=== PATIENT | male | born 1985 | race Asian ===

== ENCOUNTER 2021-03-15 15:06 | Emergency (ER) | payer OTHER ==
[~2021-03-15] VITALS: Ht 157.5 cm; Wt 54.0 kg
--- NOTE | 2021-03-15 15:20 | NUR ---
PT SELF PRESENTS TO ED. AMBULATORY W. STEADY GAIT C/O PRESSURE LIKE CHEST PAIN INTERMITTENT X 4 DAYS. PT STATES LAST NIGHT PAIN WAS WORST. DENIES SOB. 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 AWAITING MD WHEELER.
--- NOTE | 2021-03-15 15:22 | NUR ---
DR PANTOJA AT BEDSIDE FOR EVAL.
[2021-03-15] MEDS ORDERED: IV NS 0.9% 1,000 ML BAG IV ONE (15:30)
--- NOTE | 2021-03-15 15:35 | NUR ---
IV LINE STARTED BLOOD DRAWN AND SENT TO LAB
--- NOTE | 2021-03-15 15:45 | NUR ---
RADIOLOGY AT BEDSIDE FOR CHEST XRAY.
[2021-03-15 15:54] LABS: BASOPHILS % (AUTO) 0.3 % (0.0-2.0); EOSINOPHILS % (AUTO) 0.2 % (0.0-6.0); HEMATOCRIT 48 % (39-51); HEMOGLOBIN 16.4 g/dL (13.5-17.5); LYMPHOCYTES # (AUTO) 1.7 K/uL (0.8-4.8); LYMPHOCYTES % (AUTO) 18.4 % (20.0-44.0); MEAN CORPUSCULAR HGB CONC 34 g/dl (31.0-36.0); MEAN CORPUSCULAR VOLUME 87 fL (80-96); MONOCYTES # (AUTO) 0.6 K/uL (0.1-1.30); MONOCYTES % (AUTO) 6.3 % (2.0-12.0); NEUTROPHILS # (AUTO) 6.8 K/uL (1.8-8.9); NEUTROPHILS % (AUTO) 74.8 % (43.0-81.0); PLATELET COUNT (AUTO) 309 K/uL (150-450); RED BLOOD CELL COUNT(AUTO) 5.49 MIL/uL (4.5-6.0); WHITE BLOOD COUNT (AUTO) 9.1 K/uL (4.3-11.0)
[2021-03-15 16:09] LABS: CALCIUM, SERUM 9.2 mg/dL (8.5-10.1); CARBON DIOXIDE 25 mmol/L (21-32); CHLORIDE 100 mmol/L (98-107); CREATININE 0.9 mg/dL (0.6-1.3); GLUCOSE 91 mg/dL (74-106); POTASSIUM 4.2 mmol/L (3.5-5.1); SODIUM SERUM 137 mmol/L (136-145); UREA NITROGEN, BLOOD 20 mg/dL (7-18)
[2021-03-15] MEDS ORDERED: NAPR-1192 PO (18:50)
--- NOTE | 2021-03-15 19:11 | NUR ---
Patient discharged to home in stable condition. Written and verbal after care instructions given. Patient verbalizes understanding of instruction.IV removed. Catheter intact and site benign. Pressure and 4x4 applied to site. No bleeding noted.
[2021-03-15 19:12] VITALS: BP 135/87
== END 2021-03-15 19:12 | disposition home or self-care (01) ==
LOC: ER 15:12
DX: R07.89 Other chest pain (principal); I10 Essential (primary) hypertension; Z60.2 Problems related to living alone
CPT/HCPCS: 36415; 71045; 80048; 84484 ×2; 85025; 85378; 93005 ×3; 96360; 99285; J7030